=== PATIENT | female | born 2005 | race African-American/Black ===

== ENCOUNTER 2025-04-11 06:49 | Day surgery (SDC) | payer OTHER ==
[2025-04-08 17:34] VITALS: BMI 23.1
[2025-04-11] MEDS ORDERED: MIDAZOLAM HCL 2 MG/2 ML SINGLE DOSE VIAL ONE (09:52)
[2025-04-11] MEDS ORDERED: LIDOCAINE 1%/EPI 1:100000 (20 ML MULTI DOSE VIAL) ONE (09:52)
[2025-04-11] MEDS ORDERED: PROPOFOL 20 ML ONE (09:56)
[2025-04-11] MEDS ORDERED: OXYMETAZOLINE 0.05% NASAL SOLUTION 15 ML BOTTLE NS ONE (10:00)
[2025-04-11] MEDS ORDERED: ONDANSETRON 4 MG/2 ML VIAL IVPUSH PRN (10:01)
[2025-04-11] MEDS ORDERED: oxyCODONE HCL 5 MG TABLET PO PRN (10:01)
[2025-04-11] MEDS: ceFAZolin SODIUM 1 GM VIAL IVPB ONE ×2 (10:14)
[2025-04-11] MEDS: OXYMETAZOLINE 0.05% NASAL SOLUTION 15 ML BOTTLE NS ONE (10:18)
[2025-04-11] MEDS: LIDOCAINE HCL 1%, 10 MG/ML (50 mL VIAL) INF ONE ×2 (10:18)
[2025-04-11] MEDS ORDERED: HYDROmorphone HCl 2 MG/ML VIAL ONE (11:45)
[2025-04-11] MEDS: BACITRACIN 0.9 GM PACKET TP ONE (12:39)
[2025-04-11] MEDS ORDERED: ONDANSETRON 4 MG/2 ML VIAL ONE (12:47)
[2025-04-11] MEDS ORDERED: SUGAMMADEX SODIUM 200 MG/2 ML VIAL ONE (12:47)
[2025-04-11] MEDS: LACTATED RINGERS SOLUTION 1,000 ML IV SCH (13:53)
[2025-04-11 14:38] VITALS: PULSE 90; TEMP 98
[2025-04-11] MEDS ORDERED: ONDANSETRON 4 MG/2 ML VIAL IVPUSH ONE (16:14)
[2025-04-11] MEDS ORDERED: ACETAMINOPHEN 325 MG TABLET (FP) PO ONE (16:15)
[2025-04-11] MEDS: ONDANSETRON 4 MG/2 ML VIAL IVPUSH ONE (16:20)
[2025-04-11] MEDS: ACETAMINOPHEN 325 MG TABLET (FP) PO ONE (17:00)
[2025-04-11 18:48] VITALS: BP 120/76; RESP 16
== END 2025-04-11 18:45 | disposition home or self-care (01) ==
LOC: JASU-SURG 06:49
PROVIDERS: ATTEND Otolaryngology
PROC: 09UK07Z Supplement Nasal Mucosa and Soft Tissue with Autologous Tissue Substitute, Open Approach (ICD-10-PCS; principal; 2025-04-11 09:00)
DX: J34.2 Deviated nasal septum (principal); M95.0 Acquired deformity of nose
CPT/HCPCS: 81025; 88304-TC; 88311-TC; 94760